=== PATIENT | female | born 1980 | race African-American/Black ===

== ENCOUNTER → 2016-12-16 | Outpatient (CLI) | payer OTHER ==
--- NOTE | 2016-12-17 03:36 | HKNOTE ---
DATE OF SERVICE: 12/16/2016 CHIEF COMPLAINT: Left hip pain. HISTORY OF PRESENT ILLNESS: This is a 36-year-old female complaining of pain in the left groin. Sh e states that the pain has been ongoing for the last several years. She has seen Dr. Iván moore and had a left hip corticosteroid injection. The injection did not provide any pain relief. She has had previous physical therapy with some improvement of her pain. She is currently seeing a painter bottom for pain medications. She denies any history of trauma. She states mirtha t the pain has been ongoing since age of 10. 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 She denies any back pain . There is no radiation of the pain. She has no other complaints. GAIT: Nonantalgic gait, reciprocal gait pattern. LEFT HIP EXAMINATION: 0 to 120 degrees of flexion, 50 degrees of external rotation, 30 degrees of i nternal rotation, 30 degrees of adduction, 40 degrees of abduction. Negative straight leg raise. N egative Shirley's. LEFT KNEE EXAMINATION: 0 to 120 degrees of range of motion, stable to varus valgus stress. Negativ e Felix, negative anterior drawer, negative posterior drawer, negative Alyssa's. MRI OF THE LUMBAR SPINE: No disk herniations or abnormalities are seen. MRI LEFT HIP: There is a tear of the anterior labrum. There is no evidence of degenerative changes or dysplasia. IMPRESSION: A 36-year-old female with left hip labral tear. PLAN: We will request authorization for physical therapy of the left hip. She can continue pain me dications per pain management. She will follow up with me as needed in the future. Dictated By: KARON BOND/ALEX Conf#: [id number] DID#: [id number]
== END | disposition home or self-care (01) ==
LOC: HKI 13:51
PROVIDERS: ATTEND Orthopaedic Surgery Adult Reconstructive Orthopaedic Surgery
DX: S73.102A Unspecified sprain of left hip, initial encounter (principal); X58.XXXA Exposure to other specified factors, initial encounter
CPT/HCPCS: G0463